=== PATIENT | male | born 1965 | race Caucasian/White ===

== ENCOUNTER 2020-11-10 13:46 | Emergency (ER) | payer SELFPAY ==
[~2020-11-10] VITALS: Ht 162.6 cm; Wt 65.0 kg
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
--- NOTE | 2020-11-10 14:25 | NUR ---
xr at bedside
[2020-11-10] MEDS ORDERED: SODIUM CHLORIDE FLUSH 10ML SYR IVF ONE (14:30)
[2020-11-10] MEDS ORDERED: PLEASE ENTER ALLERGIES MC SCH (14:30)
[2020-11-10 14:45] LABS: ANION GAP 8 mmol/L (5-15); CALCIUM 8.9 mg/dL (8.5-10.1); CHLORIDE 104 mmol/L (98-107); CREATININE 0.68 mg/dL (0.7-1.3)
[2020-11-10 14:46] LABS: ALANINE AMINOTRANSFERASE 21 U/L (12-78)
[2020-11-10 14:48] LABS: ALKALINE PHOSPHATASE 124 U/L (45-117); BILIRUBIN,TOTAL 0.4 mg/dL (0.2-1.0); TOTAL PROTEIN 8.6 g/dL (6.4-8.2)
[2020-11-10 15:04] LABS: BASOPHILS % (AUTO) 1 % (0-1); EOSINOPHILS % (AUTO) 0 % (1-7); LYMPHOCYTES % (AUTO) 13 % (22-44); MEAN CORPUSCULAR HEMOGLOBIN 32.7 pg (27.5-34.5); MEAN CORPUSCULAR HGB CONC 34.4 g/dL (33.2-36.2); MEAN PLATELET VOLUME 7.4 fL (7.4-10.4); MONOCYTES % (AUTO) 5 % (2-9); NEUTROPHILS % (AUTO) 82 % (42-75); PLATELET COUNT 461 x10^3/uL (130-400); RED BLOOD COUNT 4.53 x10^6/uL (4.38-5.82); RED CELL DISTRIBUTION WIDTH 13.4 % (9.4-14.8)
[2020-11-10 15:05] LABS: MD NO
[2020-11-10 16:14] VITALS: BP 200/101
== END 2020-11-10 16:40 | disposition home or self-care (01) ==
LOC: ED 14:12
DX: K29.00 Acute gastritis without bleeding (principal); R11.2 Nausea with vomiting, unspecified; R10.13 Epigastric pain; R05 Cough; I10 Essential (primary) hypertension; F17.210 Nicotine dependence, cigarettes, uncomplicated; Z88.0 Allergy status to penicillin
CPT/HCPCS: 36415; 71045; 76700; 80053; 83690; 85025; 99285

== ENCOUNTER 2021-02-10 17:45 | Emergency (ER) | payer MEDICAID ==
[~2021-02-10] VITALS: Ht 160 cm; Wt 60.6 kg
--- NOTE | 2021-02-10 17:59 | NUR ---
BAR CATCHER: PT TO ROOM FROM LOBBY
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
[2021-02-10 20:39] VITALS: BP 144/87
== END 2021-02-10 20:41 | disposition home or self-care (01) ==
LOC: ED 19:03
DX: S67.197A Crushing injury of left little finger, initial encounter (principal); I10 Essential (primary) hypertension; F17.200 Nicotine dependence, unspecified, uncomplicated; X58.XXXA Exposure to other specified factors, initial encounter; Y93.89 Activity, other specified; Y92.89 Other specified places as the place of occurrence of the external cause; Y99.8 Other external cause status
CPT/HCPCS: 29130; 99283

== ENCOUNTER 2021-02-11 22:21 | Inpatient (IN) | payer MEDICAID ==
[~2021-02-11] VITALS: Ht 160 cm; Wt 61.1 kg
--- NOTE | 2021-02-11 23:21 | NUR ---
ERP AT BEDSIDE
[2021-02-11] MEDS ORDERED: VANCOMYCIN 1,500 MG in SODIUM CHLORIDE 0.9% 250 ML IV ONE (23:45)
[2021-02-12] MEDS ORDERED: ONDANSETRON 2MG/ML, 2ML IVPush ONE
[2021-02-12] MEDS ORDERED: VANCOMYCIN PER PHARMACY MC ONE
[2021-02-12] MEDS ORDERED: HYDROmorphone 1 MG/ML, 1ML INJ IVPush PRN
[2021-02-12] MEDS ORDERED: SODIUM CHLORIDE FLUSH 10ML SYR IVF ONE
[2021-02-12 00:01] LABS: BASOPHILS % (AUTO) 1 % (0-1); EOSINOPHILS % (AUTO) 2 % (1-7); LYMPHOCYTES % (AUTO) 9 % (22-44); MEAN CORPUSCULAR HEMOGLOBIN 32.6 pg (27.5-34.5); MEAN CORPUSCULAR HGB CONC 34.2 g/dL (33.2-36.2); MEAN PLATELET VOLUME 7.1 fL (7.4-10.4); MONOCYTES % (AUTO) 7 % (2-9); NEUTROPHILS % (AUTO) 81 % (42-75); PLATELET COUNT 407 x10^3/uL (130-400); RED BLOOD COUNT 4.24 x10^6/uL (4.38-5.82); RED CELL DISTRIBUTION WIDTH 12.9 % (9.4-14.8)
[2021-02-12] MEDS ORDERED: ONDANSETRON 2MG/ML, 2ML ONE (00:06)
[2021-02-12] MEDS ORDERED: HYDROmorphone 2 MG/ML, 1ML ONE (00:06)
[2021-02-12 00:12] LABS: ALBUMIN 3.5 g/dL (3.4-5.0); ANION GAP 6 mmol/L (5-15); CALCIUM 8.9 mg/dL (8.5-10.1); CHLORIDE 103 mmol/L (98-107); CREATININE 0.94 mg/dL (0.7-1.3)
--- NOTE | 2021-02-12 00:18 | NUR ---
PT TO MRI
[2021-02-12] MEDS ORDERED: PROMETHAZINE 25 MG/ML, 1ML IM PRN (00:30)
[2021-02-12] MEDS ORDERED: KETOROLAC 30 MG/1 ML IV PRN (00:30)
[2021-02-12] MEDS ORDERED: VANCOMYCIN PER PHARMACY MC PRN (00:30)
[2021-02-12] MEDS ORDERED: BISACODYL 10 MG SUPP PR PRN (00:30)
[2021-02-12] MEDS ORDERED: ONDANSETRON ODT 4 MG PO PRN (00:30)
[2021-02-12] MEDS ORDERED: ACETAMINOPHEN 325 MG TABLET PO PRN (00:30)
[2021-02-12] MEDS ORDERED: ONDANSETRON 2MG/ML, 2ML IVPush PRN (00:30)
[2021-02-12] MEDS ORDERED: POTASSIUM CHLORIDE 20 MEQ TAB.ER.PRT PO ONE (00:30)
[2021-02-12] MEDS ORDERED: DOCUSATE 100 MG CAPSULE PO PRN (00:30)
[2021-02-12] MEDS ORDERED: morphine SULFATE 10 MG/ML, 1ML IVPush PRN (00:30)
[2021-02-12] MEDS ORDERED: POLYETHYLENE GLYCOL 17 GM PACKET PO PRN (00:30)
--- NOTE | 2021-02-12 00:32 | NUR ---
Pt to be admitted to [facility], room 358. Report called to [facility].
[2021-02-12] MEDS ORDERED: GADOTERATE 7.5 MMOL/15ML SYR ONE (00:56)
[2021-02-12] MEDS: SODIUM CHLORIDE 0.9% 1,000 ML IV SCH ×2 (01:15→09:40)
--- NOTE | 2021-02-12 01:16 | NUR ---
Covering steve schaefer for break. Pt back from MRI. Abx started, IVF 125/hr. Pt to go to floor.
[2021-02-12 01:35] VITALS: BP 157/88
[2021-02-12] MEDS: NICOTINE 14MG/24 HR PATCH.TD24 TD SCH (01:55)
[2021-02-12] MEDS ORDERED: PHARMACOKINETIC CONSULTATION MC ONE (02:00)
[2021-02-12] MEDS ORDERED: PHARMACOKINETIC MONITORING MC PRN (02:00)
[2021-02-12] MEDS: MEROPENEM 500 MG in SODIUM CHLORIDE 0.9% 100 ML IV SCH ×3 (02:49→19:59)
[2021-02-12 06:06] LABS: BASOPHILS % (AUTO) 1 % (0-1); EOSINOPHILS % (AUTO) 3 % (1-7); LYMPHOCYTES % (AUTO) 14 % (22-44); MEAN CORPUSCULAR HEMOGLOBIN 32.6 pg (27.5-34.5); MEAN CORPUSCULAR HGB CONC 33.9 g/dL (33.2-36.2); MEAN PLATELET VOLUME 7.2 fL (7.4-10.4); MONOCYTES % (AUTO) 8 % (2-9); NEUTROPHILS % (AUTO) 73 % (42-75); PLATELET COUNT 380 x10^3/uL (130-400); RED BLOOD COUNT 4.05 x10^6/uL (4.38-5.82); RED CELL DISTRIBUTION WIDTH 13.2 % (9.4-14.8)
[2021-02-12 06:14] LABS: CHLORIDE 103 mmol/L (98-107)
[2021-02-12 06:30] LABS: ALANINE AMINOTRANSFERASE 24 U/L (12-78); ALBUMIN 3.1 g/dL (3.4-5.0); ALKALINE PHOSPHATASE 127 U/L (45-117); ANION GAP 7 mmol/L (5-15); BILIRUBIN,TOTAL 0.2 mg/dL (0.2-1.0); CALCIUM 8.5 mg/dL (8.5-10.1); CHOL/HDL RATIO 2.2; CHOLESTEROL, TOTAL 79 mg/dL (140-239); CREATININE 0.67 mg/dL (0.7-1.3); HDL CHOL % 46 % (26-37); HDL CHOLESTEROL (DIRECT) 36 mg/dL (40-60); LDL CHOLESTEROL,CALCULATED 30 mg/dL (54-169); LDL/HDL RATIO 0.8 (0.5-3.0); TOTAL PROTEIN 7.6 g/dL (6.4-8.2); TRIGLYCERIDES 65 mg/dL (50-200); VLDL CHOLESTEROL 13 mg/dL (0-25)
[2021-02-12 07:04] VITALS: BP 150/85
[2021-02-12] MEDS: OXYcodone IR 5MG TABLET PO PRN ×3 (09:41→23:20)
[2021-02-12 13:46] VITALS: BP 162/80
[2021-02-12] MEDS: VANCOMYCIN 1,200 MG in SODIUM CHLORIDE 0.9% 250 ML IV SCH (17:49)
[2021-02-12] MEDS: POTASSIUM CHLORIDE 20 MEQ TAB.ER.PRT PO SCH (17:49)
[2021-02-12 19:48] VITALS: BP 170/100
[2021-02-12] MEDS: hydrALAzine 20 MG/ML, 1ML IVPush PRN (19:59)
[2021-02-12 20:29] VITALS: BP 163/78
[2021-02-13] VITALS (8 sets, daily range): BP systolic 135–209; BP diastolic 78–99
[2021-02-13] MEDS: NICOTINE 14MG/24 HR PATCH.TD24 TD SCH (00:30)
[2021-02-13] MEDS: hydrALAzine 20 MG/ML, 1ML IVPush PRN ×2 (01:49→07:17)
[2021-02-13] MEDS: MEROPENEM 500 MG in SODIUM CHLORIDE 0.9% 100 ML IV SCH ×3 (03:50→20:21)
[2021-02-13 05:11] LABS: BASOPHILS % (AUTO) 1 % (0-1); EOSINOPHILS % (AUTO) 5 % (1-7); LYMPHOCYTES % (AUTO) 21 % (22-44); MEAN CORPUSCULAR HGB CONC 34.4 g/dL (33.2-36.2); MEAN PLATELET VOLUME 7.3 fL (7.4-10.4); MONOCYTES % (AUTO) 7 % (2-9); NEUTROPHILS % (AUTO) 66 % (42-75); PLATELET COUNT 400 x10^3/uL (130-400); RED BLOOD COUNT 4.19 x10^6/uL (4.38-5.82); RED CELL DISTRIBUTION WIDTH 13.2 % (9.4-14.8)
[2021-02-13 05:20] LABS: ANION GAP 6 mmol/L (5-15); CALCIUM 8.4 mg/dL (8.5-10.1); CHLORIDE 104 mmol/L (98-107)
[2021-02-13] MEDS: POTASSIUM CHLORIDE 20 MEQ TAB.ER.PRT PO SCH ×2 (07:20→17:14)
[2021-02-13] MEDS: OXYcodone IR 5MG TABLET PO PRN ×2 (10:58→20:22)
[2021-02-13] MEDS: VANCOMYCIN 1,200 MG in SODIUM CHLORIDE 0.9% 250 ML IV SCH (11:38)
[2021-02-13] MEDS ORDERED: ENOXAPARIN 40 MG/0.4 ML SQ SCH (14:00)
[2021-02-13] MEDS: METOCLOPRAMIDE 5 MG/ML, 2ML IVPush SCH ×2 (14:22→20:21)
[2021-02-13] MEDS: BISACODYL 10 MG SUPP PR SCH ×3 (14:24→20:22)
[2021-02-14] MEDS: NICOTINE 14MG/24 HR PATCH.TD24 TD SCH (00:30)
[2021-02-14 01:20] VITALS: BP 143/84
[2021-02-14] MEDS: METOCLOPRAMIDE 5 MG/ML, 2ML IVPush SCH (02:00)
[2021-02-14] MEDS: MEROPENEM 500 MG in SODIUM CHLORIDE 0.9% 100 ML IV SCH (04:09)
[2021-02-14] MEDS ORDERED: morphine SULFATE 10 MG/ML, 1ML IVPush PRN (06:00)
[2021-02-14] MEDS: OXYcodone IR 5MG TABLET PO PRN (06:21)
== END 2021-02-14 09:04 | disposition left against medical advice (07) | DRG 603 ==
LOC: ED 02-12 01:21 → 3N 02-12 01:33
PROVIDERS: ADMIT Internal Medicine; ATTEND Internal Medicine
DX: L03.012 Cellulitis of left finger (principal); F15.10 Other stimulant abuse, uncomplicated; I10 Essential (primary) hypertension; I89.1 Lymphangitis; F17.200 Nicotine dependence, unspecified, uncomplicated; F19.10 Other psychoactive substance abuse, uncomplicated; Z88.0 Allergy status to penicillin; W18.39XA Other fall on same level, initial encounter; Y93.89 Activity, other specified; Y92.098 Other place in other non-institutional residence as the place of occurrence of the external cause; Y99.8 Other external cause status
CPT/HCPCS: 36415; 80048; 80053; 80061; 82040; 83036; 83605; 83735; 84100; 84443; 85025; 85651; 86140; 87040; 87070; 87147; 87205; 96374; G0378; J1170; J1650; J1885; J2185; J2405; J3370; A9575; J0360; J2270; J2765; J7030; J7050

== ENCOUNTER 2021-02-18 21:24 | Emergency (ER) | payer MEDICAID ==
[~2021-02-18] VITALS: Ht 160 cm; Wt 60.9 kg
[2021-02-18 21:27] VITALS: BP 154/94
[2021-02-18] MEDS ORDERED: CLINDAMYCIN 300 MG CAPSULE PO ONE (22:00)
[2021-02-18] MEDS ORDERED: CLINDAMYCIN 300 MG CAPSULE ONE (22:06)
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
--- NOTE | 2021-02-18 23:07 | NUR ---
PT GIVEN ANTIBIOTICS PO, AND HAND WOUND DRESSED WITHOUT ISSUE. PT A&OX4. F/U AND D/C INSTRUCTIONS GIVEN TO PT AND HE V/U.
== END 2021-02-18 23:09 | disposition home or self-care (01) ==
LOC: ED 23:01
DX: L03.012 Cellulitis of left finger (principal); F15.10 Other stimulant abuse, uncomplicated; Z72.9 Problem related to lifestyle, unspecified; F17.210 Nicotine dependence, cigarettes, uncomplicated; I10 Essential (primary) hypertension
CPT/HCPCS: 99406

== ENCOUNTER 2021-03-01 17:18 | Emergency (ER) | payer MEDICAID ==
[~2021-03-01] VITALS: Ht 160 cm; Wt 61.3 kg
[2021-03-01 17:26] VITALS: BP 151/78
--- NOTE | 2021-03-01 17:32 | NUR ---
TRIAGE: PATIENT ARRIVES WITH PAIN AND SWELLING TO LEFT PINKY AND RIGHT INDEX FINGER THAT BEGAN IN PAST WEEK.
--- NOTE | 2021-03-01 18:30 | NUR ---
TASK RN: DC EDUCATION PROVIDED, PT DEMONSTRATES UNDERSTANDING. PT AMBULATED STEADILY TO DC WITH RN.
== END 2021-03-01 18:32 | disposition home or self-care (01) ==
LOC: ED 18:29
DX: L03.012 Cellulitis of left finger (principal); F17.210 Nicotine dependence, cigarettes, uncomplicated
CPT/HCPCS: 99283

== ENCOUNTER 2021-03-03 21:23 | Emergency (ER) | payer MEDICAID ==
[~2021-03-03] VITALS: Ht 160 cm; Wt 61.2 kg
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
--- NOTE | 2021-03-03 22:20 | NUR ---
BREAK RN: XRAY AT BEDSIDE
[2021-03-04 00:31] VITALS: BP 136/84
== END 2021-03-04 00:33 | disposition home or self-care (01) ==
LOC: ED 03-04 00:15
DX: S60.021A Contusion of right index finger without damage to nail, initial encounter (principal); L02.511 Cutaneous abscess of right hand; F17.200 Nicotine dependence, unspecified, uncomplicated; X58.XXXA Exposure to other specified factors, initial encounter; Y93.89 Activity, other specified; Y92.69 Other specified industrial and construction area as the place of occurrence of the external cause; Y99.8 Other external cause status
CPT/HCPCS: 26010; 99283

== ENCOUNTER 2021-07-02 02:15 | Emergency (ER) | payer MEDICAID ==
[~2021-07-02] VITALS: Ht 172.7 cm; Wt 82.1 kg
[2021-07-02 03:04] LABS: BASOPHILS % (AUTO) 1 % (0-1); EOSINOPHILS % (AUTO) 4 % (1-7); LYMPHOCYTES % (AUTO) 17 % (22-44); MEAN CORPUSCULAR HEMOGLOBIN 32.6 pg (27.5-34.5); MEAN CORPUSCULAR HGB CONC 34.4 g/dL (33.2-36.2); MEAN PLATELET VOLUME 6.9 fL (7.4-10.4); MONOCYTES % (AUTO) 7 % (2-9); NEUTROPHILS % (AUTO) 72 % (42-75); PLATELET COUNT 365 x10^3/uL (130-400); RED BLOOD COUNT 4.51 x10^6/uL (4.38-5.82); RED CELL DISTRIBUTION WIDTH 13.3 % (9.4-14.8)
[2021-07-02 03:06] LABS: ALANINE AMINOTRANSFERASE 30 U/L (12-78); ALBUMIN 3.6 g/dL (3.4-5.0); ANION GAP 6 mmol/L (5-15); CALCIUM 8.7 mg/dL (8.5-10.1); CHLORIDE 105 mmol/L (98-107); CREATININE 1.06 mg/dL (0.7-1.3)
[2021-07-02 03:10] LABS: ALKALINE PHOSPHATASE 129 U/L (45-117); BILIRUBIN,TOTAL 0.3 mg/dL (0.2-1.0); TOTAL PROTEIN 8.7 g/dL (6.4-8.2); TROPONIN I < 0.015 ng/mL (0.000-0.045)
[2021-07-02 03:43] LABS: MICROSCOPIC INDICATED
[2021-07-02 04:33] VITALS: BP 178/108
== END 2021-07-02 04:47 | disposition home or self-care (01) ==
LOC: ED 04:12
DX: R31.29 Other microscopic hematuria (principal); R07.89 Other chest pain; R53.1 Weakness; Z72.9 Problem related to lifestyle, unspecified; I10 Essential (primary) hypertension; F17.200 Nicotine dependence, unspecified, uncomplicated
CPT/HCPCS: 36415; 71045; 80053; 81001; 84484; 85025; 87086; 93005; 99285